=== PATIENT | female | born 1945 | race Caucasian/White ===

== ENCOUNTER 2020-06-23 10:08 | Day surgery (SDC) | payer OTHER ==
[~2020-06-23] VITALS: Ht 170.2 cm; Wt 76.1 kg
[~2020-06-23 10:08] MED LIST: ACYC200; ALPR.25; ATROVENT HFA12.9 GM; BUPR150ER; ESCI20; FAMO20; FLOVENT HFA12 GM; LEVSOD75; OMEP20ER
--- NOTE | 2020-06-23 12:46 | NUR ---
06/23/20 1246 LESLIE PEREZ DURING PROCEDURE PT STARTED TO COUGH AND SHOW SIGNS OF LARYNGOSPASMS. A JAWTHRUST WAS PREFORMED AT 1140 IN ATTEMPT TO BREAK LARYNGOSPASM AND PT WAS SUCTIONED AT THAT TIME. 5ML OF LIDOCAINE 2% GIVEN IV AT 1140 TO ATTEMPT TO BREAK LARYNGOSPASM. PT'S O2 SATURATION FELL TO 65% ANESTHESIOLOGIST (DR. ROBERSON) PAGED OVERHEAD AT 1140 FOR ASSISTANCE. AT 1141 THE PROCEDURE WAS ABORTED AND BAG MASK WAS USED TO PROVIDE POSITIVE PRESSURE VENTILATION. AT THAT TIME PT'S LARYNGOSPASM BROKE AND PTS O2 SATURATION REACHED 100%. AT 1144 PT WOKE FROM SEDATION. AT 1149 PT WAS GIVEN RACEMIC EPINEPHRINE INHALED. PT WAS TRANSFERRED TO HER ROOM AT 1155. LUNG SOUNDS CLEAR POST PROCEDURE. PT WAS GIVEN INCENTIVE SPIROMETER TO USE AT HOME. PT COMPLAINED OF SLIGHT SCRATCHY THROAT. PT TOLERATED ORAL INTAKE (JUICE). PT WAS DISCHARGED AT 1230.
[2020-07-10] MEDS ORDERED: ACYC200 PO (12:52)
[2020-07-10] MEDS ORDERED: B-100 COMPLEX100 MG PO (12:52)
[2020-07-10] MEDS ORDERED: ALPR.25 PO (12:52)
[2020-07-10] MEDS ORDERED: QVAR REDIHALE10.6 G2 INH (12:53)
[2020-07-10] MEDS ORDERED: BUPR150ER PO (12:53)
[2020-07-10] MEDS ORDERED: ESCI20 PO (12:54)
[2020-07-10] MEDS ORDERED: FAMO20 PO (12:54)
[2020-07-10] MEDS ORDERED: VITAMIN D31000 UNI1 PO (12:54)
[2020-07-10] MEDS ORDERED: UNISOM PO (12:54)
[2020-07-10] MEDS ORDERED: FLOVENT HFA12 GM INH (12:55)
[2020-07-10] MEDS ORDERED: IPRATROPIUM BRO15 ML (12:55)
[2020-07-10] MEDS ORDERED: LEVSOD75 PO (12:55)
[2020-07-10] MEDS ORDERED: Milk Thistle175 M1 PO (12:56)
[2020-07-10] MEDS ORDERED: CO Q10100 MG PO (12:56)
[2020-07-10] MEDS ORDERED: SKYADERM-LP 2.1 EACH (12:56)
[2020-07-10] MEDS ORDERED: PRESERVISION A1 EAC1 PO (12:57)
== END 2020-06-23 12:30 | disposition home or self-care (01) ==
LOC: ORSCSDS 10:08
PROVIDERS: Internal Medicine Gastroenterology
PROC: 0DB58ZX Excision of Esophagus, Via Natural or Artificial Opening Endoscopic, Diagnostic (ICD-10-PCS; principal; 2020-06-23 11:30)
DX: R05 Cough (principal); R11.10 Vomiting, unspecified; K20.90 Esophagitis, unspecified without bleeding; K44.9 Diaphragmatic hernia without obstruction or gangrene; Z79.899 Other long term (current) drug therapy
CPT/HCPCS: 88305; J2704; J7120

== ENCOUNTER 2020-07-17 10:35 | Day surgery (SDC) | payer OTHER ==
[~2020-07-17 10:35] MED LIST changes: +ACYC200 PO; +ALPR.25 PO; +B-100 COMPLEX100 MG PO; +BUPR150ER PO; +CO Q10100 MG PO; +ESCI20 PO; +FAMO20 PO; +FLOVENT HFA12 GM INH; +IPRATROPIUM BRO15 ML; +LEVSOD75 PO; +Milk Thistle175 M1 PO; +PRESERVISION A1 EAC1 PO; +QVAR REDIHALE10.6 G2 INH; +SKYADERM-LP 2.1 EACH; +UNISOM PO; +VITAMIN D31000 UNI1 PO
== END 2020-07-17 11:30 | disposition home or self-care (01) ==
LOC: ORSCSDS 10:35
DX: R05 Cough (principal); Z53.9 Procedure and treatment not carried out, unspecified reason
CPT/HCPCS: J2704; J7120

== ENCOUNTER 2020-09-11 11:44 | Day surgery (SDC) | payer OTHER ==
[~2020-09-11] VITALS: Ht 170.2 cm; Wt 78.6 kg
--- NOTE | 2020-09-11 12:09 | NUR ---
09/11/20 1209 DARREN SALVADOR ONE ATTEMPT BY JASON IN RH VALVE SECOND SUCCESSFUL BY JASON IN LH PT TOW
== END 2020-09-11 13:17 | disposition home or self-care (01) ==
LOC: ORSCSDS 11:44
PROVIDERS: Internal Medicine Gastroenterology
PROC: 0DB58ZX Excision of Esophagus, Via Natural or Artificial Opening Endoscopic, Diagnostic (ICD-10-PCS; principal; 2020-09-11 12:45)
DX: K21.9 Gastro-esophageal reflux disease without esophagitis (principal); R05 Cough; K44.9 Diaphragmatic hernia without obstruction or gangrene; E03.9 Hypothyroidism, unspecified; I10 Essential (primary) hypertension; Z79.899 Other long term (current) drug therapy
CPT/HCPCS: 88305; J2704

== ENCOUNTER 2023-11-06 20:13 | Inpatient (IN) | payer MEDICARE ==
[~2023-11-06] VITALS: Ht 162.6 cm; Wt 61.9 kg
[2023-11-06 20:28] LABS: BASOPHILS ABSOLUTE AUTO 0.05 K/mm3 (0.00-0.23); BASOPHILS PERCENT AUTO 0 % (0-2); EOSINOPHILS ABSOLUTE AUTO 0.16 K/mm3 (0.00-0.68); EOSINOPHILS PERCENT AUTO 1 % (0-6); Hematocrit 32.7 % (33.0-51.0); Hemoglobin 11.2 g/dL (11.5-16.0); IMMATURE GRAN ABSOLUTE AUTO 0.08 K/mm3 (0.00-0.10); IMMATURE GRAN PERCENT AUTO 1 % (0-1); LYMPHOCYTES ABSOLUTE AUTO 3.29 K/mm3 (0.84-5.20); LYMPHOCYTES PERCENT AUTO 27 % (21-46); MONOCYTES ABSOLUTE AUTO 1.02 K/mm3 (0.16-1.47); MONOCYTES PERCENT AUTO 9 % (4-13); Mean Corpuscular HGB 32.9 pg (26.0-34.0); Mean Corpuscular HGB Conc 34.3 g/dL (31.5-36.5); Mean Corpuscular Volume 96 fL (80-100); Mean Platelet Volume 8.9 fL (9.1-12.4); NEUTROPHILS ABSOLUTE AUTO 7.46 K/mm3 (1.96-9.15); NEUTROPHILS PERCENT AUTO 62 % (41-73); Platelet Count 287 K/mm3 (150-400); RDW Coefficient Variation 11.6 % (11.7-14.2); RDW Standard Deviation 40.8 fL (35.1-46.3); White Blood Cell Count 12.06 K/mm3 (4.00-11.30)
[2023-11-06] MEDS ORDERED: Pantoprazole Sodium 40 MG Injection IV ONE (20:30)
[2023-11-06] MEDS ORDERED: DiphenhydrAMINE HCl 50 MG/ML 1ML Vial IV ONE (20:30)
[2023-11-06] MEDS ORDERED: FentaNYL Citrate 50 MCG/ML 2 ML Injection IV PRN (20:30)
[2023-11-06] MEDS ORDERED: NS 1,000 ML IV SCH ×2 (20:30→23:10)
[2023-11-06] MEDS ORDERED: Metoclopramide HCl 5MG / ML 2ML Vial IV ONE (20:30)
[2023-11-06 20:44] LABS: International Normalized Ratio 0.95; Prothrombin Time Results 10.2 Sec (9.7-11.5)
[2023-11-06 20:58] LABS: Albumin, Blood 3.3 g/dL (3.4-5.0); Albumin/Globulin Ratio 0.9 (0.8-1.8); Bilirubin, Total 0.6 mg/dL (0.1-1.0); Bun/Creatinine Ratio 21.8 (12.0-20.0); Calcium, Blood 8.8 mg/dL (8.5-10.1); Creatinine, Blood 0.69 mg/dL (0.40-1.00); Globulin, Blood 3.5 g/dL (2.2-4.0); Potassium, Blood 3.9 mmol/L (3.5-5.5); Total Protein, Blood 6.8 g/dL (6.4-8.2)
[2023-11-06] MEDS ORDERED: OMEP20ER PO (21:18)
[2023-11-06] MEDS ORDERED: ATORVASTATIN CA20 MG PO (21:19)
[2023-11-06] MEDS ORDERED: BUPROPION XL150 M1 PO (21:19)
[2023-11-06] MEDS ORDERED: ZYRTEC10 M2 PO (21:20)
[2023-11-06] MEDS ORDERED: Flonase 0.05% N16 GM (21:20)
[2023-11-06] MEDS ORDERED: OxyCODONE HCL 5 MG TAB PO PRN (23:00)
[2023-11-06] MEDS ORDERED: Ondansetron HCl 2 MG / ML 2ML Vial IV PRN ×2 (23:05)
[2023-11-06] MEDS ORDERED: HYDROmorphone HCl/Pf 1MG SYR IV PRN (23:05)
[2023-11-07 00:34] LABS: Albumin, Blood 3.7 g/dL (3.4-5.0); Bilirubin, Total 1.2 mg/dL (0.1-1.0); Bun/Creatinine Ratio 22.3 (12.0-20.0); Calcium, Blood 8.6 mg/dL (8.5-10.1); Creatinine, Blood 0.63 mg/dL (0.40-1.00); Globulin, Blood 3.7 g/dL (2.2-4.0); Potassium, Blood 3.7 mmol/L (3.5-5.5); Total Protein, Blood 7.4 g/dL (6.4-8.2)
[2023-11-07 00:39] VITALS: BP 138/76
[2023-11-07] MEDS ORDERED: NALTREX1.5 MG PO (00:57)
[2023-11-07 05:10] LABS: BASOPHILS ABSOLUTE AUTO 0.04 K/mm3 (0.00-0.23); BASOPHILS PERCENT AUTO 0 % (0-2); EOSINOPHILS PERCENT AUTO 0 % (0-6); Hematocrit 33.2 % (33.0-51.0); Hemoglobin 11.4 g/dL (11.5-16.0); IMMATURE GRAN ABSOLUTE AUTO 0.08 K/mm3 (0.00-0.10); IMMATURE GRAN PERCENT AUTO 0 % (0-1); LYMPHOCYTES ABSOLUTE AUTO 0.66 K/mm3 (0.84-5.20); LYMPHOCYTES PERCENT AUTO 4 % (21-46); MONOCYTES ABSOLUTE AUTO 0.75 K/mm3 (0.16-1.47); MONOCYTES PERCENT AUTO 4 % (4-13); Mean Corpuscular HGB 33.5 pg (26.0-34.0); Mean Corpuscular HGB Conc 34.3 g/dL (31.5-36.5); Mean Corpuscular Volume 98 fL (80-100); Mean Platelet Volume 9.1 fL (9.1-12.4); NEUTROPHILS ABSOLUTE AUTO 16.32 K/mm3 (1.96-9.15); NEUTROPHILS PERCENT AUTO 92 % (41-73); Platelet Count 249 K/mm3 (150-400); RDW Coefficient Variation 11.6 % (11.7-14.2); RDW Standard Deviation 41.7 fL (35.1-46.3); White Blood Cell Count 17.85 K/mm3 (4.00-11.30)
--- NOTE | 2023-11-07 05:36 | NUR ---
SHIFT SUMMARY PT A&OX4 AND ANSWERS QUESTIONS APPROPRIATELY. PT ARRIVED AT AROUND 0030 AND AMBULATED INDEPENDENTLY TO THE BED FROM THE [facility]. PT REPORTS HAVING A DRINK EARLIER IN THE DAY ON 11/06/23 AND REPORTS AN AVERAGE OF 4 DRINKS PER DAY. NO WITHDRAWL SYMPTOMS AT THIS TIME. MEDICATED FOR PAIN PER EMAR. ORIENTED TO ROOM AND UNIT. VSS, NO COMPLAINTS OF CP/PRESSURE OR SOB. NO ACUTE EVENTS AT THIS TIME. FALL PRECAUTIONS IN PLACE AND CALL LIGHT IN REACH.
[2023-11-07 05:55] LABS: CHOL/HDL RATIO 2.2; Cholesterol 149 mg/dL (50-200); HDL Cholesterol 69 mg/dL (>39); Low Density Lipoprotein Chol 70 mg/dL (0-110); Triglycerides 50 mg/dL (30-160); Very Low Density Lipoprot Chol 10 mg/dL (6-32)
[2023-11-07 07:22] VITALS: BP 115/71
[2023-11-07] MEDS ORDERED: Thiamine HCl 100 MG in NS 50 ML IV SCH (09:00)
[2023-11-07] MEDS ORDERED: Sennosides 8.6 MG Tab PO SCH (09:00)
[2023-11-07] MEDS ORDERED: Folic Acid 1 MG in NS 50 ML IV SCH (09:00)
[2023-11-07] MEDS ORDERED: Docusate Sodium 100 MG Cap PO SCH (09:00)
[2023-11-07] MEDS ORDERED: Enoxaparin 40 MG/0.4 ML SYR SC SCH (09:00)
[2023-11-07 12:59] LABS: BASOPHILS ABSOLUTE AUTO 0.02 K/mm3 (0.00-0.23); BASOPHILS PERCENT AUTO 0 % (0-2); EOSINOPHILS PERCENT AUTO 0 % (0-6); Hematocrit 33.1 % (33.0-51.0); Hemoglobin 11.5 g/dL (11.5-16.0); IMMATURE GRAN ABSOLUTE AUTO 0.05 K/mm3 (0.00-0.10); IMMATURE GRAN PERCENT AUTO 0 % (0-1); LYMPHOCYTES ABSOLUTE AUTO 1.59 K/mm3 (0.84-5.20); LYMPHOCYTES PERCENT AUTO 10 % (21-46); MONOCYTES ABSOLUTE AUTO 0.71 K/mm3 (0.16-1.47); MONOCYTES PERCENT AUTO 4 % (4-13); Mean Corpuscular HGB 33.9 pg (26.0-34.0); Mean Corpuscular HGB Conc 34.7 g/dL (31.5-36.5); Mean Corpuscular Volume 98 fL (80-100); NEUTROPHILS PERCENT AUTO 85 % (41-73); Platelet Count 255 K/mm3 (150-400); RDW Coefficient Variation 11.9 % (11.7-14.2); RDW Standard Deviation 42.5 fL (35.1-46.3); Red Blood Cell Count 3.39 M/mm3 (3.80-5.20); White Blood Cell Count 16.17 K/mm3 (4.00-11.30)
[2023-11-07] MEDS ORDERED: LORazepam 2 MG/ML 1ML Injection IV PRN (13:00)
[2023-11-07] MEDS ORDERED: Piperacillin/Tazobactam Sod 4.5 GM in NS 100 ML IV SCH (13:00)
[2023-11-07] MEDS ORDERED: Piperacillin/Tazobactam Sod 3.375 GM in NS 100 ML IV SCH (13:00)
[2023-11-07] MEDS ORDERED: NS 1,000 ML IV ONE (13:00)
[2023-11-07 13:23] LABS: Albumin, Blood 3.1 g/dL (3.4-5.0); Albumin/Globulin Ratio 0.9 (0.8-1.8); Bilirubin, Total 0.8 mg/dL (0.1-1.0); Bun/Creatinine Ratio 16.3 (12.0-20.0); Creatinine, Blood 0.67 mg/dL (0.40-1.00); Globulin, Blood 3.5 g/dL (2.2-4.0); Potassium, Blood 3.8 mmol/L (3.5-5.5); Total Protein, Blood 6.6 g/dL (6.4-8.2)
[2023-11-07] MEDS ORDERED: Indocyanine Green 25 MG Vial IV STA (14:12)
[2023-11-07 16:24] VITALS: BP 121/68
--- NOTE | 2023-11-07 17:46 | NUR ---
SHIFT SUMMARY PT AWAKE DURING SHIFT REPORT, SITTING UP IN BED, RESTING QUIETLY WATCHING TV. ADMITTED FOR PANCREATITIS. IVF'S INFUSING PER EMAR. DR MULLEN IN TO SEE PT EARLY. NEW ORDERS PLACED. US AND MRI COMPLETED THIS AM. 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 DR GRAY HERE A COUPLE OF TIMES TO SEE PT AND DISCUSS PLAN OF CARE. PT MAY NOW HAVE CL DIET AND THEN BE NPO AT NM TONIGHT FOR SX TOMORROW. IVF'S AND IV ABX GIVEN PER EMAR. PT MEDICATED X1 FOR C/O BACK PAIN. EXTRA PILLOWS PLACED BEHIND BACK WELL WITH PT REPORTING THAT HELPFUL. TO RM FOR A WHILE TODAY. ATIVAN GIVEN FOR ANXIETY PER EMAR. UP INDEPENDENTLY TO BTHRM NEEDED. DENIES FURTHER NEEDS AT THIS TIME. CALL LT IN REACH.
[2023-11-07 19:26] VITALS: BP 118/65
[2023-11-08] VITALS (12 sets, daily range): BP systolic 119–139; BP diastolic 71–105
--- NOTE | 2023-11-08 04:51 | NUR ---
SHIFT SUMMARY THIS RN ASSUMED CARE OF PATIENT AT 1900. PT A&O X4. CIWA MOSTLY NEGATIVE T/O THIS SHIFT. PT WITH CIWA OF 8 X1 D/T HEADACHE, ANXIETY, AND SWEATING. PT MEDICATED PER EMAR WITH GOOD RESULTS. PT PLACED ON 2L VIA NC WHILE SLEEPING D/T DESATTING TO MID 80'S. BP STABLE. SR WITH HR 80'S. AFEBRILE. NS INFUSING PER EMAR. PT SBA TO BATHROOM FOR LINE MANAGEMENT. MEDICATING PER EMAR FOR PAIN. REPORTS IMPROVED PAIN FROM PREVIOUS SHIFTS. PT HAS BEEN NPO SINCE MIDNIGHT FOR LIKELY SURGERY TODAY 11/07. BED IN LOWEST POSITION AND CALL LIGHT WITHIN REACH. THIS RN WILL REPORT TO ONCOMING DAYSHIFT RN.
[2023-11-08 04:56] LABS: BASOPHILS ABSOLUTE AUTO 0.03 K/mm3 (0.00-0.23); BASOPHILS PERCENT AUTO 0 % (0-2); EOSINOPHILS ABSOLUTE AUTO 0.08 K/mm3 (0.00-0.68); EOSINOPHILS PERCENT AUTO 1 % (0-6); Hematocrit 28.7 % (33.0-51.0); Hemoglobin 9.7 g/dL (11.5-16.0); IMMATURE GRAN ABSOLUTE AUTO 0.03 K/mm3 (0.00-0.10); IMMATURE GRAN PERCENT AUTO 0 % (0-1); LYMPHOCYTES ABSOLUTE AUTO 1.41 K/mm3 (0.84-5.20); LYMPHOCYTES PERCENT AUTO 13 % (21-46); MONOCYTES ABSOLUTE AUTO 0.74 K/mm3 (0.16-1.47); MONOCYTES PERCENT AUTO 7 % (4-13); Mean Corpuscular HGB 33.9 pg (26.0-34.0); Mean Corpuscular HGB Conc 33.8 g/dL (31.5-36.5); Mean Corpuscular Volume 100 fL (80-100); Mean Platelet Volume 9.1 fL (9.1-12.4); NEUTROPHILS ABSOLUTE AUTO 8.34 K/mm3 (1.96-9.15); NEUTROPHILS PERCENT AUTO 78 % (41-73); Platelet Count 202 K/mm3 (150-400); RDW Coefficient Variation 11.9 % (11.7-14.2); RDW Standard Deviation 43.9 fL (35.1-46.3); Red Blood Cell Count 2.86 M/mm3 (3.80-5.20); White Blood Cell Count 10.63 K/mm3 (4.00-11.30)
[2023-11-08 05:28] LABS: Albumin, Blood 2.5 g/dL (3.4-5.0); Albumin/Globulin Ratio 0.8 (0.8-1.8); Bilirubin, Total 0.8 mg/dL (0.1-1.0); Bun/Creatinine Ratio 11.7 (12.0-20.0); Calcium, Blood 7.3 mg/dL (8.5-10.1); Creatinine, Blood 0.68 mg/dL (0.40-1.00); Potassium, Blood 3.4 mmol/L (3.5-5.5); Total Protein, Blood 5.5 g/dL (6.4-8.2)
[2023-11-08] MEDS ORDERED: Indocyanine Green 25 MG Vial IV ONE (11:00)
[2023-11-08] MEDS ORDERED: Lactated Ringer's 1,000 ML IV SCH (11:25)
[2023-11-08] MEDS ORDERED: Bupivacaine 0.5% Inj 10 ML Vial ONE (13:05)
[2023-11-08] MEDS ORDERED: HYDROmorphone HCl/Pf 1MG SYR ONE (13:12)
[2023-11-08] MEDS ORDERED: propofoL 20 ML IV ONE (13:13)
[2023-11-08] MEDS ORDERED: Rocuronium Bromide 10 MG/ML 5ML Injection IV ONE (13:14)
[2023-11-08] MEDS ORDERED: Midazolam HCl 1MG / ML 2ML Vial IV ONE (13:15)
[2023-11-08] MEDS ORDERED: Midazolam HCl 1MG / ML 2ML Vial ONE (13:21)
[2023-11-08] MEDS ORDERED: Dexamethasone Sod Phos 10 MG/ML 1ML VIAL ONE (14:10)
[2023-11-08] MEDS ORDERED: Ondansetron HCl 2 MG / ML 2ML Vial ONE (14:24)
[2023-11-08] MEDS ORDERED: Sugammadex Sodium 200 MG/2ML SDV (100 MG/ML) ONE ×2 (14:41→14:45)
--- NOTE | 2023-11-08 15:14 | NUR ---
ASSUMED PT CARE FROM SUJATA FORREST RN AT 1505. PT EYES CLOSED RESTING QUIETLY. APPEARS COMFORTABLE & RELAXED. AFEBRILE/VSS. NO COMPLAINTS AT THIS TIME.
--- NOTE | 2023-11-08 16:58 | NUR ---
SHIFT SUMMARY PT CONT LEVEL OF CARE. PT HAD ROBOIC LAPAROSCOIC CHOLESTECTOMY DONE THIS SHIFT. PT ARRIVED BACK UP ON THE MEDICAL FLOOR AROUND 1600. PT NOTED TO BE DROWZY. DENINES PAIN BU STATES HER THROAT IS SCRATCH. INSERTION SITES NOTED TO BE CLOSED AND INTACT. PLAN IS TO DC TOMORROW. DR. MULLEN STATED THAT PT CAN DRINK TOLERATED TONIGHT.
[2023-11-08] MEDS ORDERED: METO25ER PO (17:14)
[2023-11-08] MEDS ORDERED: Pantoprazole Sodium 40 MG Injection IV SCH (20:15)
[2023-11-09 05:17] VITALS: BP 148/83
--- NOTE | 2023-11-09 05:50 | NUR ---
SUMMARY: PT A/OX4, CALLS APPROPRIATELY TO SPECIFY NEEDS AND IS PLEASANT AND COOPERATIVE W/CARE. SHE'S POD0 S/P LAP JAY JAY W/X4 LAP SITES C/D/I. ABDO MILDLY DISTENDED AND PAINFULS W/PRN FENT, NORCO AND DILAUDID RECEIVED FOR TOLERABLE RELIEF. SHE ALSO WAS NAUSEOUS W/EPIGASTRIC DISTRESS FOLLOWING DINNER AT BEGINNING OF SHIFT. ZOFRAN PROVIDED PRN AND NEW ORDER OBTAINED FOR PROTONIX DAILY W/1ST DOSE RECEIVED FOR GOOD AFFECT. PT BACK ON FULL LIQ'S IN SMALL AMTS AND WILL ADVANCE TOLERATED. NO ACUTE CHANGES, VSS/AFEBRILE. WCTM AND REPORT TO DAY RN.
[2023-11-09 07:33] VITALS: BP 126/73
--- NOTE | 2023-11-09 10:09 | NUR ---
DISCHARGE SUMMARY PT DC THIS SHIFT. PT STATED UNDERSTANDING TO DC INSTRUCTION AND EDUCATION PROVIDED. PT LEFT MEDICAL FLOOR AT 1000 VIA WHEELCHAIR WITH THIS NURSE. PT DC WITH SPOUSE IN PRIVATE VEHICLE.
== END 2023-11-09 10:02 | disposition home or self-care (01) | DRG 417 ==
LOC: ER 20:13 → MEDS 20:14
PROVIDERS: Emergency Medicine; Surgery; ADMIT Family Medicine
PROC: 0DNU4ZZ Release Omentum, Percutaneous Endoscopic Approach (ICD-10-PCS; 2023-11-08)
PROC: 8E0W4CZ Robotic Assisted Procedure of Trunk Region, Percutaneous Endoscopic Approach (ICD-10-PCS; 2023-11-08)
PROC: BF522Z0 Other Imaging of Gallbladder using Fluorescing Agent, Intraoperative (ICD-10-PCS; 2023-11-08)
PROC: 0FT44ZZ Resection of Gallbladder, Percutaneous Endoscopic Approach (ICD-10-PCS; principal; 2023-11-08 13:00)
DX: K80.12 Calculus of gallbladder with acute and chronic cholecystitis without obstruction (principal); K85.10 Biliary acute pancreatitis without necrosis or infection; R07.89 Other chest pain; I10 Essential (primary) hypertension; F10.10 Alcohol abuse, uncomplicated; E03.9 Hypothyroidism, unspecified; F41.1 Generalized anxiety disorder; Y90.1 Blood alcohol level of 20-39 mg/100 ml; R00.0 Tachycardia, unspecified; Z88.8 Allergy status to other drugs, medicaments and biological substances; Z79.899 Other long term (current) drug therapy; Z79.890 Hormone replacement therapy
CPT/HCPCS: 36415; 71045; 74181; 76700; 80053; 80061; 83605; 83615; 83690; 84484; 85025; 85610; 87040; 88304; 93005; 93010; 94762; 96361; 96365; 96367; 96372; 96374; 96375; 96376; 99285-25; A9270; C9113; G0378; J1100; J1170; J1200; J1650; J2060; J2250; J2405; J2543; J2704; J2765; J3010; J3411; J7030; J7120